=== PATIENT | male | born 1990 | race African-American/Black ===

== ENCOUNTER 2023-05-26 12:51 | Emergency (ER) | payer SELFPAY | END 2023-05-26 16:25 | disposition home or self-care (01) | LOC: CSHERS 12:51 | DX: B37.2 Candidiasis of skin and nail (principal); I10 Essential (primary) hypertension; Z87.891 Personal history of nicotine dependence | CPT/HCPCS: 99282 ==

== ENCOUNTER 2023-12-19 14:55 | Emergency (ER) | payer OTHER, SELFPAY ==
[2023-12-19] MEDS ORDERED: Acetaminophen 325 MG TAB ONE (15:11)
== END 2023-12-19 15:30 | disposition home or self-care (01) ==
LOC: CSHERS 14:55
DX: J98.8 Other specified respiratory disorders (principal); I10 Essential (primary) hypertension; Z87.891 Personal history of nicotine dependence
CPT/HCPCS: 99283

== ENCOUNTER 2024-06-14 02:43 | Emergency (ER) | payer SELFPAY ==
[2024-06-14] MEDS ORDERED: Ketorolac Tromethamine 30 MG (1 mL) VIAL ONE (02:51)
== END 2024-06-14 03:00 | disposition home or self-care (01) ==
LOC: CSHERS 02:43
DX: M62.830 Muscle spasm of back (principal); I10 Essential (primary) hypertension; Z87.891 Personal history of nicotine dependence; Z79.899 Other long term (current) drug therapy
CPT/HCPCS: 96372; 99283; J1885